=== PATIENT | male | born 1950 | race Caucasian/White ===

== ENCOUNTER → 2019-08-07 | Outpatient (CLI) | payer MEDICARE ==
[2019-08-07 11:45] LABS: Appearance,Urine Cloudy (Clear); Bilirubin,Urine Negative (Negative); Blood,Urine Negative (Negative); Color,Urine Yellow; Glucose,Urine (UA) Negative (Negative); Hyaline Casts,Urine 16 /lpf (0-2); Ketones,Urine Negative (Negative); Leukocyte Esterase,Urine Negative (Negative); Mucus,Urine Many /hpf; Nitrite,Urine Negative (Negative); PH, Urine 5.5 (5.0-8.0); Protein,Urine Trace (Negative); RBC,Urine <1 /hpf (0-5); Specific Gravity,Urine 1.023 (1.001-1.035); Squamous Epithelial Cell,Urine <1 /hpf (0-4); WBC,Urine 3 /hpf (0-5)
[2019-08-07 11:53] LABS: HCT 49.8 % (39.0-53.0); MCH 29.9 pg (25.0-35.0); MCHC 32.2 g/dL (31.0-37.0); MCV 92.9 fL (80.0-100.0); Mean Platelet Volume 8.5; Platelet Count 210 k/uL (150-450); RBC 5.36 m/uL (4.30-5.90); RDW 13.5 % (11.5-15.5); WBC 5.4 k/uL (3.8-10.6)
[2019-08-07 12:02] LABS: INR 1.1 (<1.2); Partial Thromboplastin Time 24.3 sec (22.0-30.0); Prothrombin Time 11.4 sec (9.0-12.0)
[2019-08-07 12:03] LABS: Albumin 3.9 g/dL (3.5-5.0); Calcium 9.2 mg/dL (8.4-10.2); Potassium 4.1 mmol/L (3.5-5.1); Total Bilirubin 1.2 mg/dL (0.2-1.3); Total Protein 6.9 g/dL (6.3-8.2)
== END | disposition home or self-care (01) ==
LOC: LABPAT 10:34
PROVIDERS: ATTEND Orthopaedic Surgery
DX: Z01.818 Encounter for other preprocedural examination (principal); Z01.812 Encounter for preprocedural laboratory examination; Z79.01 Long term (current) use of anticoagulants
CPT/HCPCS: 80053; 81001; 85027; 85610; 85730; 87070

== ENCOUNTER 2019-08-18 07:52 | Day surgery (SDC) | payer MEDICARE ==
[2019-08-12 12:37] VITALS: BMI 40.1
[~2019-08-18 07:52] MED LIST: ACETAMINOPHEN TAB 500 MG TAB PO ONE; DEXAMETHASONE SOD PHOSPHATE 10 MG/ML 1 ML VIAL IV ONE; GABAPENTIN 300 MG CAP PO ONE; HYDROmorphone 0.5 MG/0.5 ML SYRINGE IVP PRN; LIDOCAINE 1% (10MG/ML) FOR IV START INTRADERMA PRN; MELOXICAM 7.5 MG TAB PO ONE; MIDAZOLAM 2 MG/2 ML VIAL IV PRN; ONDANSETRON 4 MG/2 ML VIAL IVP ONE; ROPIVACAINE 246.25 MG, EPINEPHrine 0.5 MG, KETOROLAC 30 MG, cloNIDine HCL/PF 80 MCG, WA... MISCELLANE ONE; TRANEXAMIC ACID 1,000 MG in SODIUM CHLORIDE 0.9% 100 ML IVPB ONE; ceFAZolin 3 GM in SODIUM CHLORIDE 0.9% 100 ML IVPB ONE; fentaNYL (PF) 50 MCG/ML 2 ML AMP IV PRN
[2019-08-18] MEDS ORDERED: ACETAMINOPHEN TAB 500 MG TAB ONE (08:31)
[2019-08-18] MEDS ORDERED: ONDANSETRON 4 MG/2 ML VIAL ONE (08:32)
[2019-08-18] MEDS: LACTATED RINGERS 1,000 ML IV SCH (08:48)
[2019-08-18 08:51] LABS: Glucose,Whole Blood 167 mg/dL (75-99)
[2019-08-18] MEDS ORDERED: ceFAZolin 3,000 MG in SODIUM CHLORIDE 0.9% IRRIGATIO 3,000 ML IRRIGATION ONE (09:23)
--- NOTE | 2019-08-18 10:45 | P.OP ---
Date of Procedure: 08/18/19 Preoperative Diagnosis: Severe osteoarthritis left hip Postoperative Diagnosis: Severe osteoarthritis left hip Procedure(s) Performed: Left total hip arthroplasty with a direct anterior approach Implants: Murillo and nephew Polarstem size 9 standard Murillo [employer] Nephew R3, 3 hole acetabular shell, 56 mm Murillo [employer] Nephew reflection 6.5 mm cancellus screw, 25 mm 2 Murillo [employer] Nephew R3, XLPE 20 acetabular liner Murillo & Nephew Oxinium femoral head 36 m, +4 All components were press-fit. The articulation is Oxinium on polyethylene. Anesthesia: spinal Surgeon: Harinder Stevenson Panel Lay Up Worker #1: Tracee Tadeo Estimated Blood Loss (ml): 150 (65 mL returned with Cell Saver) Pathology: other (Femoral head) Condition: stable Disposition: PACU Indications for Procedure: After failure of conservative treatment we discussed the surgical and nonsurgical treatment options at length. Patient wishes to proceed with a total hip arthroplasty with a direct anterior approach. Complications specific to this procedure were discussed at length, including but not limited to infection, leg length discrepancy, dislocation, and nerve injury. Covid-19 was also discussed at length with the patient, and they are aware of the current policies and procedures. The patient was given the option of delaying surgery, but they elect to proceed knowing these risks. Patient is aware of all these complications and informed consent was obtained Operative Findings: The operative findings are consistent with severe osteoarthritis of the left hip Description of Procedure: Patient was seen and evaluated in the preoperative area, consent was reviewed, and the surgical site was marked with a skin marker. Patient was then brought to the operating room and given prophylactic antibiotics intravenously. 1 g of Tranexamic acid was also given. A spinal anesthetic was administered by the anesthesia department. The patient was then placed on the Easton table with the bony prominences well-padded. The hip area was then prepped and draped in usual sterile fashion. A universal timeout was then performed, which confirmed the patient's name, surgical site, ALLERGIES, and procedure being performed. Next the incision site was located at 1 cm distal and 1 cm lateral to the anterior superior iliac spine. The skin and subcutaneous tissues were sharply incised. Incision was carefully dissected down to the fascia overlying the tensor fascia atiya muscle. This fascia was then incised in line with the incision. Next, using blunt finger dissection, the tensor fascia atiya muscle was dissected off its investing fascia. The muscle was then carefully retracted laterally with a cobra retractor over the lateral neck of the femur. Next, the circumflex vessels were identified and cauterized using the AquaMantis device. The anterior hip capsule was then exposed. The capsule was then opened and an inverted T fashion. Cobra retractors were then placed intracapsularly. The proximal femur was then visualized. The femoral neck was then osteotomized appropriate level above the lesser trochanter. Small amount of traction was placed with the Easton table. A small wedge of bone was then removed from the remaining femoral head. Next, using a corkscrew femoral head was easily removed from the acetabulum. On gross visual inspection, the femoral head had complete loss of articular cartilage in multiple periarticular osteophytes. Attention was then turned to the acetabulum. the acetabulum was exposed and any remaining labrum was excised. Sequential reaming of the acetabulum was performed using fluoroscopic guidance. When the appropriate size was reached, a trial was then placed. The position and fit of the trial was checked with fluoroscopy. The trial was then removed. Then, using fluoroscopic guidance, the final implant was impacted at 20 of anteversion and 40 of abduction, and fully seated in the acetabulum. 2 screws were then placed in the acetabulum. Again fluoroscopy was used to check position of the screws. Next, the liner was then impacted, with a 20 elevated liner located in the anterior superior quadrant. Component locking was confirmed. Attention was then directed to the femur. With the aid of the Easton table, the femur was externally rotated to approximately 130, extended, and abducted under the opposite leg. A side hook was then placed under the proximal femur, and the side hook elevator was used to elevate the proximal femur. Retractors were then placed. A capsular release was performed, as well as a release of the conjoined tendon, which afforded excellent visualization of the proximal femur. Next, a box osteotome was used to lateralize the proximal femur. A fourth hand was then used to locate the femoral canal. Sequential broaching was then performed with appropriate size which afforded excellent fixation in the proximal femur. A trial was then placed with appropriate head and neck, and the hip was gently reduced with the aid of the Easton table. Fluoroscopy was then used to check position of the components, as well as to ensure equal leg lengths. The hip was then gently dislocated and the trials were then removed. Final implants were then impacted and the hip was again reduced. Final fluoroscopic x-rays confirmed that the components were in anatomic position, as well as equal leg lengths. The hip was also taken through range of motion, and found to be stable. The hip was then copiously irrigated with antibiotic solution with pulsatile lavage. The hip was then irrigated with Irrisept solution. The soft tissues were then injected with a ropivacaine solution, which consisted of 246.25 mg of ropivacaine, 0.5 mg of epinephrine, 30 mg of Toradol, 80 g of clonidine, and 48.45 mL of sterile water, for a total of 100 mL of fluid injected. A second dose of 1 g of Tranexamic acid was also given. the fascia was then closed with 2-0 strata fix suture. The subcutaneous tissue was closed with 3-0 Vicryl. The subcuticular tissue was closed with 3-0 strata fix suture. The skin was then closed with Dermabond glue and a sterile silver dressing. The patient was then transferred to the recovery room in stable condition. The seed laboratory assistant STEFANI Aguirre was required due to the complexity of surgery, and the need for skilled surgical clinical reviewer for positioning, draping, exposure, retraction, and closure of the wound.
[2019-08-18] MEDS ORDERED: LACTATED RINGERS 1,000 ML IV ONE (10:53)
[2019-08-18] MEDS ORDERED: HYDROcodone/APAP 7.5-325MG 1 EACH TAB PO PRN (11:15)
[2019-08-18] MEDS ORDERED: ONDANSETRON 4 MG/2 ML VIAL IVP PRN (11:15)
[2019-08-18] MEDS ORDERED: DIAZEPAM 5 MG TAB PO PRN (11:15)
[2019-08-18] MEDS ORDERED: HYDROmorphone 0.5 MG/0.5 ML SYRINGE IVP PRN ×3 (11:15)
[2019-08-18] MEDS ORDERED: NALOXONE 0.4 MG/ML 1 ML VIAL IV PRN (11:15)
[2019-08-18] MEDS ORDERED: hydrOXYzine PAMOATE 25 MG CAP PO PRN (11:15)
[2019-08-18] MEDS ORDERED: MAGNESIUM HYDROXIDE 2,400 MG/10 ML CUP PO PRN (11:15)
[2019-08-18 11:39] LABS: Glucose,Whole Blood 185 mg/dL (75-99)
--- NOTE | 2019-08-18 12:03 | XR ---
EXAMINATION TYPE: XR Hip Limited LT DATE OF EXAM: 08/18/2019 COMPARISON: NONE HISTORY: Postop TECHNIQUE: One view submitted. FINDINGS: There is postsurgical change in near anatomic alignment. There is soft tissue edema and emphysema. IMPRESSION: 1. Postoperative change. Appears in near-anatomic alignment.
--- NOTE | 2019-08-18 12:25 | FL ---
EXAMINATION TYPE: FL guidance operating room DATE OF EXAM: 08/18/2019 HISTORY: Fluoroscopy time 43 seconds of fluoroscopy provided. IMPRESSION: 1. Fluoroscopy time.
[2019-08-18] MEDS: SODIUM CHLORIDE 0.9% 1,000 ML IV SCH (15:16)
[2019-08-18 16:41] LABS: Glucose,Whole Blood 215 mg/dL (75-99)
[2019-08-18] MEDS: ceFAZolin 3 GM in SODIUM CHLORIDE 0.9% 100 ML IVPB SCH (17:06)
[2019-08-18] MEDS: INSULIN ASPART (NovoLOG) 100 UNIT/ML VIAL SQ SCH ×2 (17:52→21:31)
[2019-08-18] MEDS ORDERED: LORazepam 0.5 MG TAB PO PRN (19:47)
[2019-08-18 20:52] LABS: Glucose,Whole Blood 440 mg/dL (75-99)
[2019-08-18 20:52] LABS: Glucose,Whole Blood 366 mg/dL (75-99)
[2019-08-18] MEDS ORDERED: FENOFIBRATE 160 MG TAB PO SCH (21:00)
[2019-08-18] MEDS ORDERED: ATORVASTATIN 40 MG TAB PO SCH (21:00)
[2019-08-18] MEDS ORDERED: SENNOSIDES-DOCUSATE SODIUM 1 EACH TAB PO SCH (21:00)
[2019-08-18] MEDS ORDERED: INSULIN DETEMIR (LEVEMIR) 100 UNIT/ML SYR SQ SCH (21:00)
[2019-08-18] MEDS: ASPIRIN 325 MG TAB PO SCH (21:32)
--- NOTE | 2019-08-18 22:21 | P.CONS ---
History of Present Illness - Reason for Consult Consult date: 08/18/19 Medical management Requesting physician: Harinder Stevenson - Chief Complaint Left hip pain - History of Present Illness Consultation: This is a very pleasant 69-year-old patient of Dr. Uche Murillo. Has undergone a left total hip arthroplasty Dr. Stevenson. Postprocedure. Comfortable no nausea vomiting. Did tolerate some supper. Chronic stable medical conditions include diabetes, hypertension, osteoarthritis in multiple joints. Did have a history of colon cancer with some partial bowel resection. No nausea vomiting. No cardiac history. 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 Alcohol rarely. Physical examination: VITAL SIGNS: 98.3, 60, 20, 139/73, 98% room air GENERAL: BMI 40.5, sitting up comfortable. EYES: Pupils equal. Conjunctiva normal. HEENT: External appearance of nose and ears normal, oral cavity grossly normal. NECK: JVD not raised; masses not palpable. HEART: First and second heart sounds are normal; no edema. LUNGS: Respiratory rate normal; clear to auscultation. ABDOMEN: Soft, nontender, liver spleen not palpable, no masses palpable. PSYCH: Alert and oriented x3; mood and affect normal MUSCULAR skeletal: Dressing over the left hip incision site and evidence of OA. NEUROLOGICAL: Cranial nerves grossly intact; no facial asymmetry, power and sensation grossly intact. LYMPHATICS: No lymph nodes palpable in the axilla and neck, INVESTIGATIONS, reviewed in the clinical context: White count 5.4 hemoglobin 16 potassium 4.1 bun 21 and creatinine 1.5 Accu-Cheks 167, 185 Assessment: -Left total hip arthroplasty -Primary osteoarthritis -Chronic kidney disease stage III probably from diabetic nephropathy -Diabetes mellitus type 2 -Essential hypertension -Morbid obesity BMI 40.5 -Chronic nicotine dependence patient cigarette smoker Plan: Home medications resumed. Accu-Cheks will be followed. His aspirin for DVT prophylaxis per Dr. Stevenson. Care was discussed with the patient question were answered. Thank you Dr. Stevenson Past Medical History Past Medical History: Cancer, Diabetes Mellitus, Hypertension, Osteoarthritis (OA) Additional Past Medical History / Comment(s): hx colon cancer History of Any Multi-Drug Resistant Organisms: None Reported Past Surgical History: Back Surgery, Bowel Resection, Cholecystectomy, Orthopedic Surgery, Tonsillectomy Additional Past Surgical History / Comment(s): rt ankle fusion, steel cage in back, isaiah hand surgery for dupuytrens contractures, isaiah cataracts Past Anesthesia/Blood Transfusion Reactions: No Reported Reaction Past Psychological History: No Psychological Hx Reported Smoking Status: Current some day smoker Past Alcohol Use History: Rare Additional Past Alcohol Use History / Comment(s): has smoked since teen Past Drug Use History: None Reported - Past Family History Mother Family Medical History: Cancer Additional Family Medical History / Comment(s): colon, breast, uterine Medications and Allergies Home Medications Medication Instructions Recorded Confirmed Type Atorvastatin [Lipitor] 40 mg PO HS 08/12/19 08/12/19 History Diclofenac Sodium [Voltaren] 75 mg PO BID 08/12/19 08/12/19 History Fenofibrate Nanocrystallized 145 mg PO HS 08/12/19 08/18/19 History [Fenofibrate] Hydrochlorothiazide [Hydrodiuril] 12.5 mg PO DAILY 08/12/19 08/12/19 History Hydrocodone/Acetaminophen [[place] 1 tab PO QID PRN 08/12/19 08/18/19 History 10-325] Insulin Glargine [Lantus] 65 unit SQ HS 08/12/19 08/12/19 History Insulin Lispro [humaLOG Kwikpen] 15 unit SQ AC-TID 08/12/19 08/12/19 History LORazepam [Ativan] 0.5 mg PO BID PRN 08/12/19 08/12/19 History Losartan Potassium [Cozaar] 100 mg PO DAILY 08/12/19 08/12/19 History Vit C/E/Zn/Coppr/Lutein/Zeaxan 1 each PO BID 08/12/19 08/12/19 History [Preservision Areds 2 Softgel] amLODIPine BESYLATE [Norvasc] 2.5 mg PO DAILY 08/12/19 08/12/19 History Allergies Allergy/AdvReac Type Severity Reaction Status Date / Time codeine AdvReac Nausea & Verified 08/18/19 08:18 Vomiting Physical Exam Vitals: Vital Signs Temp Pulse Pulse Resp BP BP BP 08/18/19 19:05 98.3 F 60 20 139/73 08/18/19 15:10 115/66 08/18/19 14:55 116/69 08/18/19 14:40 121/69 08/18/19 14:25 115/68 08/18/19 14:11 97.6 F 61 19 111/68 08/18/19 13:30 58 L 16 119/60 08/18/19 13:00 57 L 16 111/56 08/18/19 12:24 53 L 16 104/56 08/18/19 12:09 59 L 16 88/51 08/18/19 11:54 58 L 16 93/50 08/18/19 11:39 62 16 90/51 08/18/19 11:24 61 16 105/48 08/18/19 11:09 97.2 F L 62 16 93/48 08/18/19 08:20 97.0 F L 53 L 18 174/90 Pulse Ox 08/18/19 19:05 98 08/18/19 15:10 08/18/19 14:55 08/18/19 14:40 08/18/19 14:25 08/18/19 14:11 98 08/18/19 13:30 97 08/18/19 13:00 97 08/18/19 12:24 97 08/18/19 12:09 96 08/18/19 11:54 97 08/18/19 11:39 97 08/18/19 11:24 100 08/18/19 11:09 97 08/18/19 08:20 95 Intake and Output 08/18/19 08/18/19 08/18/19 06:59 14:59 22:59 Intake Total 1501 360 Output Total 150 Balance 1351 360 Intake: IV 1501 Oral 360 Output: Estimated Blood Loss 150 Other: Voiding Method Toilet Toilet # Voids 2 Weight 128 kg Results Labs: Abnormal Lab Results - Last 24 Hours (Table) 08/18/19 08/18/19 08/18/19 Range/Units 08:44 11:36 16:40 POC Glucose (mg/dL) 167 H 185 H 215 H (75-99) mg/dL 08/18/19 08/18/19 Range/Units 20:45 20:47 POC Glucose (mg/dL) 440 H 366 H (75-99) mg/dL
[2019-08-18] MEDS: HYDROcodone/APAP 7.5-325MG 1 EACH TAB PO PRN (23:37)
[2019-08-19] MEDS: ceFAZolin 3 GM in SODIUM CHLORIDE 0.9% 100 ML IVPB SCH (03:02)
[2019-08-19] MEDS: SODIUM CHLORIDE 0.9% 1,000 ML IV SCH (03:02)
[2019-08-19] MEDS: LACTATED RINGERS 1,000 ML IV SCH (03:03)
[2019-08-19] MEDS: HYDROcodone/APAP 7.5-325MG 1 EACH TAB PO PRN ×2 (05:52→13:05)
[2019-08-19] MEDS: INSULIN ASPART (NovoLOG) 100 UNIT/ML VIAL SQ SCH ×4 (07:44→12:51)
[2019-08-19 07:55] LABS: Glucose,Whole Blood 204 mg/dL (75-99)
[2019-08-19] MEDS: ASPIRIN 325 MG TAB PO SCH (08:36)
[2019-08-19] MEDS ORDERED: MELOXICAM 7.5 MG TAB PO SCH (09:00)
[2019-08-19] MEDS ORDERED: amLODIPine 2.5 MG TAB PO SCH (09:00)
[2019-08-19] MEDS ORDERED: LOSARTAN 50 MG TAB PO SCH (09:00)
--- NOTE | 2019-08-19 09:13 | P.DS ---
Providers Expected date of discharge: 08/19/19 Attending physician: Harinder Stevenson Consults: 08/18/19 11:15 Consult Physician Routine Consulting Provider: Yifan Singh Consult Reason/Comments: medical management Do you want consulting provider notified?: Yes Primary care physician: Uche Murillo MD - Discharge Diagnosis(es) (1) Osteoarthritis of left hip Current Visit: Yes Status: Acute (2) S/P total hip arthroplasty Current Visit: Yes Status: Acute Hospital Course: This is a 69-year-old male with known history of degenerative arthritis of the left hip. The patient presents for evaluation. After discussion and consideration patient elects to proceed with total hip arthroplasty. The patient is seen preoperatively by Dr. Stevenson and medically cleared for surgery by their primary care physician. Patient is admitted to [facility] on 08/18/2019 for total hip arthroplasty. The procedures performed without complication or sequelae. The patient is doing well postoperatively. Labs and vital signs are stable on day of discharge. On day of discharge patient's hip incision is healing well. There is minimal erythema. There is no drainage noted at this time. There is minimal soft tissue swelling to the hip and thigh. Patient has full foot and ankle motion without difficulty or pain. Calf is soft and nontender to palpation. Neurovascular status to the left lower extremity is intact. Patient is discharged home in good condition. Patient will continue getting prescriptions for opioid pain medication from his family doctor for postoperative pain management. Please see med rec for accurate list of home medications. Plan - Discharge Summary Discharge Rx Participant: No New Discharge Prescriptions: New Aspirin 325 mg PO BID #60 tab Sennosides [Senokot] 2 tab PO DAILY PRN #60 tablet PRN Reason: Constipation No Action Insulin Glargine [Lantus] 65 unit SQ HS Insulin Lispro [humaLOG Kwikpen] 15 unit SQ AC-TID Atorvastatin [Lipitor] 40 mg PO HS amLODIPine BESYLATE [Norvasc] 2.5 mg PO DAILY Fenofibrate Nanocrystallized [Fenofibrate] 145 mg PO HS Losartan Potassium [Cozaar] 100 mg PO DAILY Hydrochlorothiazide [Hydrodiuril] 12.5 mg PO DAILY Diclofenac Sodium [Voltaren] 75 mg PO BID LORazepam [Ativan] 0.5 mg PO BID PRN PRN Reason: anxious Hydrocodone/Acetaminophen [[place] 10-325] 1 tab PO QID PRN PRN Reason: Pain Vit C/E/Zn/Coppr/Lutein/Zeaxan [Preservision Areds 2 Softgel] 1 each PO BID Discharge Medication List Atorvastatin [Lipitor] 40 mg PO HS 08/12/19 [History] Diclofenac Sodium [Voltaren] 75 mg PO BID 08/12/19 [History] Fenofibrate Nanocrystallized [Fenofibrate] 145 mg PO HS 08/12/19 [History] Hydrochlorothiazide [Hydrodiuril] 12.5 mg PO DAILY 08/12/19 [History] Hydrocodone/Acetaminophen [[place] 10-325] 1 tab PO QID PRN 08/12/19 [History] Insulin Glargine [Lantus] 65 unit SQ HS 08/12/19 [History] Insulin Lispro [humaLOG Kwikpen] 15 unit SQ AC-TID 08/12/19 [History] LORazepam [Ativan] 0.5 mg PO BID PRN 08/12/19 [History] Losartan Potassium [Cozaar] 100 mg PO DAILY 08/12/19 [History] Vit C/E/Zn/Coppr/Lutein/Zeaxan [Preservision Areds 2 Softgel] 1 each PO BID 08/12/19 [History] amLODIPine BESYLATE [Norvasc] 2.5 mg PO DAILY 08/12/19 [History] Aspirin 325 mg PO BID #60 tab 08/19/19 [Rx] Sennosides [Senokot] 2 tab PO DAILY PRN #60 tablet 08/19/19 [Rx] Follow up Appointment(s)/Referral(s): Harinder Stevenson DO [Doctor of Osteopathic Medicine] - 2 Weeks Activity/Diet/Wound Care/Special Instructions: Weightbearing as tolerated with walker. Leave dressing intact. Dressing may be removed by home care nurse or by patient in 10 days. May shower with dressing on. Recommend use of compression stockings daily until follow up to help prevent swelling and blood clots. May remove at night before sleeping. Please follow-up with [facility] in 2 weeks and call with any questions or concerns, . Discharge Disposition: HOME WITH HOME HEALTH SERVICES
[2019-08-19 09:43] LABS: Basophils % (A) 0 %; Eosinophils % (A) 0 %; HCT 43.4 % (39.0-53.0); HGB 14.8 gm/dL (13.0-17.5); Lymphocytes # (A) 1.4 k/uL (1.0-4.8); Lymphocytes % (A) 11 %; MCH 31.8 pg (25.0-35.0); MCV 93.5 fL (80.0-100.0); Mean Platelet Volume 9.6; Monocytes # (A) 0.6 k/uL (0-1.0); Monocytes % (A) 5 %; Neutrophils # (A) 10.6 k/uL (1.3-7.7); Neutrophils % (A) 83 %; Platelet Count 207 k/uL (150-450); RBC 4.64 m/uL (4.30-5.90); RDW 12.9 % (11.5-15.5); WBC 12.8 k/uL (3.8-10.6)
[2019-08-19 11:50] LABS: Glucose,Whole Blood 268 mg/dL (75-99)
--- NOTE | 2019-08-19 23:56 | P.PN ---
Progress Note - Text Progress Note Date: 08/19/19 - Chief Complaint Left hip pain Consultation: This is a very pleasant 69-year-old patient of Dr. Uche Murillo. Has undergone a left total hip arthroplasty Dr. Stevenson. Chronic stable medical conditions include diabetes, hypertension, osteoarthritis in multiple joints. Did have a history of colon cancer with some partial bowel resection. Today-sitting up. Feeling better. Pain control. No dizziness no better. Did tolerate her diet. Review of systems: Was done for constitutional, cardiovascular, GI, pulmonary. Musculoskeletal relevant finding as above Current medications reviewed in today's electronic records Physical examination: VITAL SIGNS: 97.8, 54, 16, 120 766, 97% room air GENERAL: sitting up comfortable. EYES: Pupils equal. Conjunctiva normal. HEENT: External appearance of nose and ears normal, oral cavity grossly normal. NECK: JVD not raised; masses not palpable. HEART: First and second heart sounds are normal; no edema. LUNGS: Respiratory rate normal; clear to auscultation. ABDOMEN: Soft, nontender, liver spleen not palpable, no masses palpable. PSYCH: Alert and oriented x3; mood and affect normal MUSCULAR skeletal: Dressing over the left hip incision site and evidence of OA. INVESTIGATIONS, reviewed in the clinical context: White count 12.8 hemoglobin 14.8 Accu-Cheks 268 Previous testing White count 5.4 hemoglobin 16 potassium 4.1 bun 21 and creatinine 1.5 Accu-Cheks 167, 185 Assessment: -Left total hip arthroplasty -Primary osteoarthritis -Chronic kidney disease stage III probably from diabetic nephropathy -Diabetes mellitus type 2, uncontrolled with hyperglycemia -Essential hypertension -Morbid obesity BMI 40.5 -Chronic nicotine dependence patient cigarette smoker -Leukocytosis reactive to surgery. evidence of infection. Plan: Continue current medication due to plan. Discussed the patient. Thank you Dr. Stevenson
[2019-08-21 08:36] VITALS: BP 127/66; PULSE 54; RESP 16; TEMP 97.8
== END 2019-08-19 13:13 | disposition home health service (06) ==
LOC: OR 07:52 → 4SSUR 13:51 → OR 08-19 13:13
PROVIDERS: ATTEND Orthopaedic Surgery
DX: M16.12 Unilateral primary osteoarthritis, left hip (principal); I12.9 Hypertensive chronic kidney disease with stage 1 through stage 4 chronic kidney disease, or unspecified chronic kidney disease; E10.22 Type 1 diabetes mellitus with diabetic chronic kidney disease; N18.3 Chronic kidney disease, stage 3 (moderate); E66.01 Morbid (severe) obesity due to excess calories; F17.210 Nicotine dependence, cigarettes, uncomplicated; D72.829 Elevated white blood cell count, unspecified; Z97.3 Presence of spectacles and contact lenses; Z88.5 Allergy status to narcotic agent; Z90.49 Acquired absence of other specified parts of digestive tract; Z98.890 Other specified postprocedural states; Z83.3 Family history of diabetes mellitus; Z85.038 Personal history of other malignant neoplasm of large intestine; Z79.4 Long term (current) use of insulin; Z79.899 Other long term (current) drug therapy; Z68.41 Body mass index [BMI] 40.0-44.9, adult; Z90.89 Acquired absence of other organs; Z98.41 Cataract extraction status, right eye; Z98.42 Cataract extraction status, left eye; Z80.3 Family history of malignant neoplasm of breast; Z80.0 Family history of malignant neoplasm of digestive organs; Z80.49 Family history of malignant neoplasm of other genital organs
CPT/HCPCS: 86891; 86900; 86901; 86850; 73501 ×2; 27130; P9022; C1776; J0171; J1100; J0690 ×2; J2405; J1885; J2795; J0735; 85025; 88305; 88311

== ENCOUNTER 2019-11-28 12:04 | Emergency (ER) | payer MEDICARE ==
[2019-11-28 12:31] VITALS: BP 129/65; PULSE 59; RESP 20; TEMP 98.3
--- NOTE | 2019-11-28 12:51 | ED ---
Fall HPI - General Chief Complaint: Fall Stated Complaint: right leg injury from fall Time Seen by Provider: 11/28/19 12:34 Source: patient, RN notes reviewed Mode of arrival: ambulatory Limitations: no limitations - History of Present Illness Initial Comments: 69-year-old male presents emergency Department chief complaint of right leg pain. Patient states he fell while walking the dog yesterday when he tripped over the leash. Patient states he had some soreness but worsened today. Patient states that he has pain in his right thigh on the lateral portion there is some bruising. Patient states that he took some treatments at home which helped. No head injury no loss conscious. States he is able to ambulate states there is moderate discomfort. Denies any paresthesias no other injuries noted. - Related Data Home Medications Medication Instructions Recorded Confirmed Atorvastatin [Lipitor] 40 mg PO HS 08/12/19 08/12/19 Diclofenac Sodium [Voltaren] 75 mg PO BID 08/12/19 08/12/19 Fenofibrate Nanocrystallized 145 mg PO HS 08/12/19 08/18/19 [Fenofibrate] Hydrocodone/Acetaminophen [[place] 1 tab PO QID PRN 08/12/19 08/18/19 10-325] Insulin Glargine [Lantus] 65 unit SQ HS 08/12/19 08/12/19 Insulin Lispro [humaLOG Kwikpen] 15 unit SQ AC-TID 08/12/19 08/12/19 LORazepam [Ativan] 0.5 mg PO BID PRN 08/12/19 08/12/19 Losartan Potassium [Cozaar] 100 mg PO DAILY 08/12/19 08/12/19 Vit C/E/Zn/Coppr/Lutein/Zeaxan 1 each PO BID 08/12/19 08/12/19 [Preservision Areds 2 Softgel] amLODIPine BESYLATE [Norvasc] 2.5 mg PO DAILY 08/12/19 08/12/19 hydroCHLOROthiazide [Hydrodiuril] 12.5 mg PO DAILY 08/12/19 08/12/19 Previous Rx's Medication Instructions Recorded Aspirin 325 mg PO BID #60 tab 08/19/19 Sennosides [Senokot] 2 tab PO DAILY PRN #60 tablet 08/19/19 Allergies Allergy/AdvReac Type Severity Reaction Status Date / Time codeine AdvReac Nausea & Verified 11/28/19 12:31 Vomiting Review of Systems ROS Statement: Those systems with pertinent positive or pertinent negative responses have been documented in the HPI. ROS Other: All systems not noted in ROS Statement are negative. Past Medical History Past Medical History: Diabetes Mellitus Additional Past Medical History / Comment(s): cx- colon. History of Any Multi-Drug Resistant Organisms: None Reported Additional Past Surgical History / Comment(s): Hip surgery, colon surgery -2009. back surgery 2013. right ankle is fused. Past Psychological History: No Psychological Hx Reported Smoking Status: Current some day smoker Past Alcohol Use History: Occasional Past Drug Use History: None Reported General Exam Limitations: no limitations General appearance: alert, in no apparent distress Head exam: Present: atraumatic, normocephalic, normal inspection Respiratory exam: Present: normal lung sounds bilaterally. Absent: respiratory distress, wheezes, rales, rhonchi, stridor Cardiovascular Exam: Present: regular rate, normal rhythm, normal heart sounds. Absent: systolic murmur, diastolic murmur, rubs, gallop, clicks Extremities exam: Present: other (There is tenderness to the mid female lateral portion there is an area of ecchymosis, patient does report moderate discomfort with range of motion right hip knee full range of motion nontender) Back exam: Present: full ROM. Absent: tenderness, paraspinal tenderness, vertebral tenderness Skin exam: Present: warm, dry, intact, normal color. Absent: rash Course Vital Signs 11/28/19 12:25 Temperature 98.3 F Pulse Rate 59 L Respiratory 20 Rate Blood Pressure 129/65 O2 Sat by Pulse 98 Oximetry Medical Decision Making - Medical Decision Making X-rays reviewed there is no acute fractures. Patient has a right leg contusion. Patient will continue his pain meds at home. Advised to rest ice elevate and follow-up with orthopedics and return for any worsening symptoms. Disposition Clinical Impression: Fall, Contusion of right thigh Disposition: HOME SELF-CARE Condition: Stable Instructions (If sedation given, give patient instructions): Contusion in Adults (ED) Additional Instructions: Please return to the Emergency Department if symptoms worsen or any other concerns. Is patient prescribed a controlled substance at d/c from ED?: No Referrals: Uche Murillo MD [Primary Care Provider] - 1-2 days Harinder Stevenson DO [Doctor of Osteopathic Medicine] - 1-2 days Time of Disposition: 13:23
--- NOTE | 2019-11-28 13:14 | XR ---
EXAMINATION TYPE: XR femur RT DATE OF EXAM: 11/28/2019 CLINICAL HISTORY: Pain TECHNIQUE: Two views of the right femur are obtained. COMPARISON: None FINDINGS: There is arthropathy and hypertrophic change of the acetabulum with soft tissue areas of h eterotopic ossification. Arthropathy of the knee joints. Vascular calcification seen. Patellofemoral joint arthropathy. No acute fracture. No dislocation. IMPRESSION: 1. Arthropathy with no acute fracture.
[2019-11-28] MEDS ORDERED: ONDANSETRON 4 MG ODT STARTER PACK 2 TAB BTL PO STA (13:30)
[2019-11-28] MEDS ORDERED: HYDROmorphone 1 MG/ML 1 ML SYRINGE IM STA (13:30)
[2019-11-28] MEDS ORDERED: ONDANSETRON ODT 4 MG TAB PO STA (13:30)
== END 2019-11-28 13:49 | disposition home or self-care (01) ==
LOC: EC 12:04
DX: S70.11XA Contusion of right thigh, initial encounter (principal); E11.9 Type 2 diabetes mellitus without complications; F17.200 Nicotine dependence, unspecified, uncomplicated; Z79.4 Long term (current) use of insulin; Z88.5 Allergy status to narcotic agent; W01.0XXA Fall on same level from slipping, tripping and stumbling without subsequent striking against object, initial encounter; Y93.K1 Activity, walking an animal; Y92.89 Other specified places as the place of occurrence of the external cause
CPT/HCPCS: 73552; 99283; 96372; J1170; S0119